=== PATIENT | male | born 1995 | race American Indian/Alaskan Native ===

== ENCOUNTER 2017-01-08 11:22 | Emergency (ER) | payer OTHER ==
[2017-01-08 15:46] VITALS: BP 117/76
[2017-01-08] MEDS ORDERED: MOTRIN PO ONE (16:12)
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
== END 2017-01-08 16:56 | disposition home or self-care (01) ==
LOC: ED 11:22
DX: M54.89 Other dorsalgia (principal); F17.200 Nicotine dependence, unspecified, uncomplicated; V49.59XA Passenger injured in collision with other motor vehicles in traffic accident, initial encounter; Y93.89 Activity, other specified; Y99.8 Other external cause status; Y92.89 Other specified places as the place of occurrence of the external cause
CPT/HCPCS: 99282